=== PATIENT | female | born 1970 | race Asian ===

== ENCOUNTER 2018-01-13 11:30 | Emergency (ER) | payer OTHER ==
[2018-01-13] MEDS ORDERED: ISOVUE-370 76%-LOCM 1 ML ONE (11:42)
[2018-01-13 12:02] LABS: Bilirubin Negative (Negative); Blood, Urine Negative (Negative); Clarity CLOUDY (Clear); Glucose, Urine (Dipstick) Negative (Negative); Leukocyte Negative (Negative); Nitrite Negative (Negative); Protein, Urine (Dipstick) Trace mg/dL (Neg-Trace); Urobilinogen 0.2 mg/dL (0.2-1.0); pH, Urine 5.5 (5.0-9.0)
[2018-01-13 12:07] LABS: #Basophils 0.1 thou/uL (0.0-0.2); #Eosinphils 0.1 thou/uL (0.0-0.7); #Lymphocytes 1.9 thou/uL (1.20-3.40); #Monocytes 0.6 thou/uL (0.11-0.59); #Neutrophils 9.1 thou/uL (1.40-6.50); %Basophils 0.9 % (0.0-1.0); %Eosinophils 0.7 % (0.0-10.0); %Lymphocytes 15.9 % (21.0-51.0); %Monocytes 4.7 % (0.0-10.0); %Neutrophils 77.8 % (42.0-75.0); Hemoglobin 13.5 g/dL (12.0-16.0); Mean Corpuscular HGB CONC 33.7 g/dL (32.0-36.0); Mean Corpuscular Hemoglobin 26.9 pg (27.0-31.0); Mean Corpuscular Volume 79.7 fl (81.0-99.0); Mean Platelet Volume 7.6 fL (7.4-10.4); Platelet Count 220 thou/uL (130-400); RBC Distribution Width 13.7 % (11.5-14.5); Red Blood Cell (RBC) Count 5.03 mill/uL (4.20-5.40); White Blood Cell (WBC) Count 11.6 thou/uL (4.8-10.8)
[2018-01-13] MEDS ORDERED: Morphine 10 MG/ML VIAL ONE (12:15)
[2018-01-13] MEDS ORDERED: Ondansetron ODT 8 MG TAB ONE (12:15)
[2018-01-13 12:35] LABS: ALT (SGPT) 24 U/L (8-55); AST (SGOT) 16 U/L (5-34); Albumin 4.2 g/dL (3.5-5.0); Alkaline Phosphatase 91 U/L (40-150); Anion Gap 14 mmol/L (10-20); BUN (Urea Nitrogen) 6 mg/dL (7.0-18.7); Bilirubin, Total 0.4 mg/dL (0.2-1.2); Calc. Creatinine Clearance 0 mL/min (70-130); Calcium 9.6 mg/dL (7.8-10.44); Carbon Dioxide 25 mmol/L (22-29); Chloride 101 mmol/L (98-107); Estimated GFR-MDRD 83; Glucose 190 mg/dL (70-105); Lipase 36 U/L (8-78); Potassium 3.9 mmol/L (3.5-5.1); Protein, Total 8.2 g/dL (6.0-8.3); Sodium 136 mmol/L (136-145)
[2018-01-13] MEDS ORDERED: Ketorolac Tromethamine 30 MG/ML VIAL ONE (13:03)
--- NOTE | 2018-01-13 13:17 | CT ---
ABDOMEN AND PELVIC CT SCAN WITH IV CONTRAST: HISTORY: A 47-year-old female with a history of right lower quadrant pain. History of prior cholecystectomy a nd hysterectomy. FINDINGS: The lung bases are clear. There appears to be some fatty change of the liver. Status post cholecyst ectomy. Pancreas, spleen, and adrenal glands are unremarkable. No renal calculus or acute GE obstru ction. A normal appendix is not seen, but no CT evidence for acute appendicitis. There is a somewh at oblique defect through the right inferolateral abdominal wall with an associated fat-containing in guinal hernia up to approximately 3.4 cm. Status post hysterectomy. Septated-appearing cystic mass in the right adnexal region measuring 3.5 x 6.3 cm raising the possibility of septated ovarian cyst o r cystic mass. No abscess or abnormal fluid collection. Status post hysterectomy. IMPRESSION: Approximately 3.5 x 6.3 cm diameter septated cystic mass in the right adnexal region, evidence for an ovarian cyst or cystic mass. Localized right anterolateral lower abdominal wall defect with a fat-c ontaining hernia. Some fatty changes within the liver. No renal calculus or acute gastroesophageal obstruction. No CT evidence for acute appendicitis. No abscess or abnormal fluid collection. POS: [facility]
--- NOTE | 2018-01-13 14:03 | ULT ---
PELVIC ULTRASOUND: Date: 01/13/18 Transabdominal ultrasound of pelvis performed. INDICATION: 47-year-old female with right lower quadrant mass. Correlation made to CT of 01/13/18 which revealed a cystic mass in the right pelvis. FINDINGS: Patient is post hysterectomy. There is a right ovarian cyst measuring 3.0-3.5 cm, corresponding to th e cystic mass seen on CT. Color Doppler with spectral analysis demonstrates flow to the right ovary. Left ovary is difficult to assess with Doppler due to its position. The left ovary appears unremarkab le, measuring approximately 1.3 x 3.0 cm. IMPRESSION: Right ovarian cyst. Recommend follow-up ultrasound to assess resolution in 4-6 weeks. POS: [facility]
== END 2018-01-13 14:25 | disposition home or self-care (01) ==
LOC: ERS 11:30
DX: N83.201 Unspecified ovarian cyst, right side (principal); K46.9 Unspecified abdominal hernia without obstruction or gangrene; E03.9 Hypothyroidism, unspecified; E78.5 Hyperlipidemia, unspecified; E11.9 Type 2 diabetes mellitus without complications
CPT/HCPCS: 74177; 76856; 80053; 81003; 83690; 85025; 87086; 93976; 96361; 96374; 96375; J1885; J2270

== ENCOUNTER 2024-06-22 13:54 | Outpatient (CLI) | payer OTHER | END 2024-06-22 13:55 | disposition home or self-care (01) | LOC: SCSRAD 13:54 | PROVIDERS: ATTEND Family Medicine | DX: M79.641 Pain in right hand (principal); M25.531 Pain in right wrist; M25.831 Other specified joint disorders, right wrist ==